=== PATIENT | male | born 1980 | race Caucasian/White ===

== ENCOUNTER 2017-01-20 18:56 | Emergency (ER) | payer SELFPAY ==
[~2017-01-20] VITALS: Ht 175.3 cm; Wt 79.4 kg
--- NOTE | 2017-01-20 19:11 | ED Integumentary General ---
General Chief Complaint: Skin/Wound Problems Stated Complaint: L THUMB POSSIBLE INFECTION Source: patient Exam Limitations: no limitations History of Present Illness Time seen by provider: 19:09 Initial Comments To ER with a painful left thumb for the past 4 days. No known injury. He's had a white spot to the distal radial side of the thumb and beneath the nail for several months. He believes that he injured it and then it grew back weird he states. No fevers or chills. No swelling. He does not have a regular doctor as he states he is very frightened of going to the doctor. Timing/Duration: week Severity: mild Associated Symptoms: denies symptoms Allergies and Home Medications Allergies Coded Allergies: No Known Drug Allergies (Unverified , 01/20/17) Constitutional: see HPI EENTM: see HPI Respiratory: no symptoms reported Cardiovascular: no symptoms reported Genitourinary: no symptoms reported Musculoskeletal: see HPI Skin: no symptoms reported Psychiatric/Neurological: No Symptoms Reported Endocrine: No Symptoms Reported Past Bkdtrmq-Ojbneq-Rqyngf Hx Patient Social History Alcohol Use: Denies Use Recreational Drug Use: No Smoking Status: Former Smoker Recent Foreign Travel: No Contact w/Someone Who Travel: No Recent Hopitalizations: No Physical Abuse: No Sexual Abuse: No Mistreated: No Psychosocial Suicide Risk Score: 0 Physical Exam Vital Signs Vital Sign - Last 12Hours 01/20/17 19:08 Temp 97.8 Pulse 106 Resp 14 B/P (MAP) 129/93 Pulse Ox 98 Capillary Refill : General Appearance: WD/WN, no apparent distress HEENT: PERRL/EOMI, normal ENT inspection Neck: non-tender, full range of motion Respiratory: no respiratory distress, no accessory muscle use Gastrointestinal: non tender, soft Extremities: normal range of motion, non-tender Neurologic/Psychiatric: alert, normal mood/affect, oriented x 3 Skin: normal color, warm/dry Skin Problem Location: other (there is a 3 mm area of whitish subungual discoloration to the ulnar side of the distal right thumb nail. The surrounding skin and paronychium and lunula are unaffected) Additional Procedures : Progress I did lift the nail from the nailbed to the distal lateral aspect of the thumbnail. This released a moderate amount of purulent material. Culture of this was collected and sent to lab. This was done after a digital block using 4 mL of 2 percent lidocaine without epinephrine. Progress/Results/Core Measures Results/Orders My Orders Orders - ISAIAS WOLF APRN Wound Culture (01/20/17 19:06) Lidocaine 2% Injection 20 Ml (Xylocaine (01/20/17 19:15) Vital Signs/I&O Vital Sign - Last 12Hours 01/20/17 19:08 Temp 97.8 Pulse 106 Resp 14 B/P (MAP) 129/93 Pulse Ox 98 Departure Impression Impression: Primary Impression: Subungual abscess Disposition: HOME, SELF-CARE Condition: Stable Departure-Patient Inst. Decision time for Depature: 19:32 Referrals: NO,LOCAL PHYSICIAN (PCP/Family) Primary Care Physician Patient Instructions: Skin Abscess Add. Discharge Instructions: You may soak the hand in warm water a couple of times a day. Keep the hand over this. Once the pain medication runs out use plain Tylenol and Motrin. Take your antibiotics as directed as this pus collection is because of infection. All discharge instructions reviewed with patient and/or family. Voiced understanding. Scripts Sulfamethoxazole/Trimethoprim (Bactrim Ds Tablet) 1 Each Tablet 1 EACH PO BID, #14 TAB Prov: ISAIAS WOLF APRN 01/20/17 ISAIAS WOLF APRN Jan 20, 2017 19:11
[2017-01-20] MEDS ORDERED: LIDOCAINE 2% 20 ML (XYLOCAINE) VIAL INJ ONE (19:15)
[2017-01-20] MEDS ORDERED: TRIM/SULFAMETH 160/800 (SEPTRA DS) TAB PO ONE (19:30)
[2017-01-20] MEDS ORDERED: RX-HYDROCODONE/APAP 5/325 MG #4 TAB PK PO PRN (19:30)
[2017-01-20] MEDS ORDERED: SULF1TAB35 PO (19:33)
[2017-01-20 19:43] VITALS: BP 129/93
== END 2017-01-20 19:43 | disposition home or self-care (01) ==
LOC: ER 19:01
DX: L02.512 Cutaneous abscess of left hand (principal); Z87.891 Personal history of nicotine dependence
CPT/HCPCS: 87070; 87077; 87186; 87205; 99283

== ENCOUNTER 2019-06-14 11:00 | Emergency (ER) | payer SELFPAY ==
[~2019-06-14 11:00] MED LIST: SULF1TAB35 PO
--- NOTE | 2019-06-14 11:38 | ED General ---
General Chief Complaint: Rect Problems Stated Complaint: RECTAL BLEEDING/PAIN History of Present Illness Date Seen by Provider: Jun 14, 2019 Time Seen by Provider: 11:05 Initial Comments 39-year-old male presents for rectal pain and bleeding that began yesterday. He noted bright red blood after BM, when wiping, and in his underwear. He denies any injuries, heavy lifting or straining or bowel movements. He's never had hemorrhoids or rectal bleeding in the past. He chronically gets skin irritation to his inner thighs and buttocks, he usually applies cornstarch after showering. He noted a bump by his rectum when showering yesterday, it was tender. He has not applied any creams or ointments to the area. Timing/Duration: 24 Hours Severity: Moderate Associated Systoms: Denies Symptoms Allergies and Home Medications Allergies Coded Allergies: morphine (Verified Allergy, Unknown, Rash, 06/14/19) Home Medications Sulfamethoxazole/Trimethoprim 1 Each Tablet, 1 EACH PO BID Prescribed by: ISAIAS WOLF on 01/20/171932 Patient Home Medication List Home Medication List Reviewed: Yes Review of Systems Review of Systems Constitutional: no symptoms reported, see HPI Gastrointestinal: see HPI, other (rectal bleeding and hemorrhoids) All Other Systems Reviewed Negative Unless Noted: Yes Past Htswnyr-Kdeeej-Utwpgi Hx Past Med/Social Hx: Reviewed Nursing Past Med/Soc Hx Patient Social History Alcohol Use: Occasionally Uses Recreational Drug Use: No Type Used: Smokeless Tobacco 2nd Hand Smoke Exposure: No Recent Foreign Travel: No Contact w/Someone Who Travel: No Recent Hopitalizations: No Past Medical History Surgeries: No Respiratory: No Cardiac: Yes High Cholesterol, Hypertension Neurological: No Genitourinary: No Gastrointestinal: No Musculoskeletal: No Endocrine: No HEENT: No Cancer: No Psychosocial: No Integumentary: No Blood Disorders: No Physical Exam Vital Signs Vital Signs - First Documented 06/14/19 11:10 Temp 36.9 Pulse 97 Resp 15 B/P (MAP) 136/119 (125) Pulse Ox 98 O2 Delivery Room Air Capillary Refill : Height, Weight, BMI Height: 5'9.00" Weight: 175lbs. oz. 79.946317yk; BMI Method:Stated General Appearance: No Apparent Distress, Anxious HEENT: PERRL/EOMI, TMs Normal, Normal ENT Inspection, Pharynx Normal Neck: Full Range of Motion, Normal Inspection, Non Tender, Supple Respiratory: Chest Non Tender, Lungs Clear, Normal Breath Sounds Cardiovascular: Regular Rate, Rhythm, No Murmur, Normal Peripheral Pulses Gastrointestinal: Normal Bowel Sounds, Non Tender, Soft Rectal: Normal Rectal Tone, Hemorrhoids (left external), Tenderness, Other (mild erythema and excoriation to the area rectal skin and inner thighs) Neurologic/Psychiatric: Alert, Oriented x3, No Motor/Sensory Deficits, Normal Mood/Affect Progress/Results/Core Measures Suspected Sepsis SIRS Temperature: Pulse: Respiratory Rate: Blood Pressure / Mean: Results/Orders Vital Signs/I&O 06/14/19 06/14/19 11:10 11:46 Temp 36.9 36.9 Pulse 97 92 Resp 15 15 B/P (MAP) 136/119 (125) 122/83 (125) Pulse Ox 98 98 O2 Delivery Room Air Room Air Capillary Refill : Departure Impression Primary Impression: Hemorrhoids Qualified Codes: K64.1 - Second degree hemorrhoids Disposition: HOME, SELF-CARE Condition: Improved Departure-Patient Inst. Decision time for Depature: 11:25 Referrals: [facility]/LASHAE EATON DO NO,LOCAL PHYSICIAN (PCP) Primary Care Physician Patient Instructions: Hemorrhoids (DC) Add. Discharge Instructions: Use Aquofor or other barrier cream for skin irritation. Use Preparation H or other Hemorrhoid creams, apply 4 times daily. Use Tucks pads, apply and leave in place for 1-2 hours. Avoid heavy lifting. Increase water intake, 16 oz every two hours, while awake. Sitz baths. Apply warm moist compresses to area for 5-10 min. Take an OTC stool softner. Establish care with a Primary Care Provider to discuss your blood pressure and cholesterol. If symptoms are not improving or worse, follow up at [facility] or call Dr. Wilde's office for an appt. Return to the emergency department for new, urgent health care needs. All discharge instructions reviewed with patient and/or family. Voiced understanding. Work/School Note: Work Release Form Date Seen in the Emergency Department: Jun 14, 2019 Return to Work: Jun 16, 2019 Restrictions: No Restrictions MANNJCAKELYN Jun 14, 2019 11:38
[2019-06-14 11:46] VITALS: BP 122/83
--- OUTSIDE RECORDS SUMMARY | 2019-06-15 00:29 | XMS REPORT ---
Author Author Carlos A WATSON Organization [facility] Address [address] [place] [address] Care Team Providers Care Physiologist Name Role Phone LOKI WATSON Unavailable PROBLEMS Type Condition ICD9-CM Code [id number] Code Onset Dates Condition S tatus SNOMED Code Problem Hyperlipidemia, unspecified hyperlipidemia type E7 8.5 Active [id number] ALLERGIES No Information ENCOUNTERS Encounter Location Date Diagnosis [facility] [address] [facility] [id number] [address] [place] [phone] Dec, [facility] [address] [place] [id number] [address] [place] [phone] Nov, [facility] [address] [facility] [id number] [address] [place] [phone] Nov, [facility] [address] [facility] [id number] [address] [place] [phone] Nov, Hyperlipidemia, unspecified hyperlipidemia type E78.5 [facility] [address] [facility] [id number] [address] [place] [phone] Nov, Vision changes H53.9 and Enc ounter to establish care with new doctor Z76.89 IMMUNIZATIONS No Known Immunizations SOCIAL HISTORY Never Assessed REASON FOR VISIT lab results PLAN OF CARE VITAL SIGNS MEDICATIONS Medication Instructions Dosage Frequency Start Date End Date Duration S tatus Atorvastatin Calcium 20 mg Orally Once a day 1 tablet 24h p2017 30 day(s) Active RESULTS No Results PROCEDURES No Known procedures INSTRUCTIONS MEDICATIONS ADMINISTERED No Known Medications MEDICAL (GENERAL) HISTORY Type Description Date Surgical History head injury 1986
--- OUTSIDE RECORDS SUMMARY | 2019-06-15 00:29 | XMS REPORT ---
Author Author Carlos A WATSON Organization [facility] Address [address] [place] [address] Care Team Providers Care Link Fabric Machine Operator Name Role Phone LOKI WATSON Unavailable PROBLEMS Type Condition ICD9-CM Code [id number] Code Onset Dates Condition S tatus SNOMED Code Problem Hyperlipidemia, unspecified hyperlipidemia type E7 8.5 Active [id number] ALLERGIES No Information ENCOUNTERS Encounter Location Date Diagnosis [facility] [address] [facility] [id number] [address] [place] [phone] Dec, [facility] [address] [place] [id number] [address] [place] [phone] Nov, [facility] [address] [facility] [id number] [address] [place] [phone] Nov, [facility] [address] [facility] [id number] [address] [place] [phone] Nov, Hyperlipidemia, unspecified hyperlipidemia type E78.5 [facility] [address] [facility] [id number] [address] [place] [phone] 05 Nov, 2017 Vision changes H53.9 and Enc ounter to establish care with new doctor Z76.89 IMMUNIZATIONS No Known Immunizations SOCIAL HISTORY Never Assessed REASON FOR VISIT labs and new orders PLAN OF CARE VITAL SIGNS MEDICATIONS Medication Instructions Dosage Frequency Start Date End Date Duration S tatus Atorvastatin Calcium 20 mg Orally Once a day 1 tablet 24h 2017 30 day(s) Active RESULTS No Results PROCEDURES No Known procedures INSTRUCTIONS MEDICATIONS ADMINISTERED No Known Medications MEDICAL (GENERAL) HISTORY Type Description Date Surgical History head injury 1985
--- OUTSIDE RECORDS SUMMARY | 2019-06-15 00:29 | XMS REPORT ---
Author Author Carlos A WATSON Organization [facility] Address [address] [place] [address] Care Team Providers Care Airplane Charter Clerk Name Role Phone LOKI WATSON Unavailable PROBLEMS Type Condition ICD9-CM Code [id number] Code Onset Dates Condition S tatus SNOMED Code Problem Hyperlipidemia, unspecified hyperlipidemia type E7 8.5 Active [id number] ALLERGIES Substance Reaction Event Type Date Status Morphine Sulfate itching Drug Allergy Nov, Active ENCOUNTERS Encounter Location Date Diagnosis [facility] [address] [place] [id number] [address] [place] [phone] Dec, [facility] [address] [phone] Nov, [facility] [address] [place] [id number] [address] [place] [phone] Nov, [facility] [address] [place] [id number] [address] [place] [phone] Nov, Hyperlipidemia, unspecified hyperlipidemia type E78.5 [facility] [address] [place] [id number] [address] [place] [phone] Nov, Vision changes H53.9 and Enc ounter to establish care with new doctor Z76.89 IMMUNIZATIONS No Known Immunizations SOCIAL HISTORY Never Assessed REASON FOR VISIT Headache-ROLF padgett PLAN OF CARE Activity Details Follow Up 3 months or as indicated by lab Reason: VITAL SIGNS Height 5 ft 10 in in 2017-12-04 Weight 218.8 lbs 2017-12-04 Temperature 98.1 degrees Fahrenheit 2017-12-04 Heart Rate 96 bpm 2017-12-04 Respiratory Rate 18 2017-12-04 BMI 31.39 kg/m2 2017-12-04 Blood pressure systolic 130 mmHg 2017-12-04 Blood pressure diastolic 84 mmHg 2017-12-04 MEDICATIONS Unknown Medications RESULTS No Results PROCEDURES Procedure Date Ordered Result Body Site COMPLETE CBC W/AUTO DIFF WBC Dec 04, 2017 VENIPUNCT, ROUTINE* Dec 04, 2017 LIPID PANEL Dec 04, 2017 COMPREHEN METABOLIC PANEL Dec 04, 2017 ASSAY OF FREE THYROXINE Dec 04, 2017 ASSAY THYROID STIM HORMONE Dec 04, 2017 INSTRUCTIONS MEDICATIONS ADMINISTERED No Known Medications MEDICAL (GENERAL) HISTORY Type Description Date Surgical History head injury 1986
--- OUTSIDE RECORDS SUMMARY | 2019-06-15 00:29 | XMS REPORT ---
Author Author Carlos A WATSON Organization [facility] Address [address] [place] [address] Care Team Providers Care Pulp Machine Operator Name Role Phone LOKI WATSON Unavailable PROBLEMS Type Condition ICD9-CM Code NIO38-GV Code Onset Dates Condition S tatus SNOMED Code Problem Hyperlipidemia, unspecified hyperlipidemia type E7 8.5 Active [id number] ALLERGIES No Information ENCOUNTERS Encounter Location Date Diagnosis [facility] [address] [facility] [id number] [address] [place] [phone] Dec, [facility] [address] [place] [id number] [address] [place] [phone] Nov, [facility] [address] [facility] [id number] [address] [place] [phone] Nov, [facility] [address] [facility] [id number] [address] [place] [phone] Nov, Hyperlipidemia, unspecified hyperlipidemia type E78.5 [facility] [address] [facility] [id number] [address] [place] [phone] 05 Nov, 2017 Vision changes H53.9 and Enc ounter to establish care with new doctor Z76.89 IMMUNIZATIONS No Known Immunizations SOCIAL HISTORY Never Assessed REASON FOR VISIT Lab results PLAN OF CARE VITAL SIGNS MEDICATIONS Unknown Medications RESULTS No Results PROCEDURES No Known procedures INSTRUCTIONS MEDICATIONS ADMINISTERED No Known Medications MEDICAL (GENERAL) HISTORY Type Description Date Surgical History head injury 1986
== END 2019-06-14 11:46 | disposition home or self-care (01) ==
LOC: EDUNIT# 11:00 → ER 11:02
DX: K64.9 Unspecified hemorrhoids (principal); Z88.5 Allergy status to narcotic agent
CPT/HCPCS: 99282

== ENCOUNTER 2020-10-06 11:13 | Emergency (ER) | payer BC ==
[~2020-10-06] VITALS: Ht 175 cm; Wt 109.0 kg
--- NOTE | 2020-10-06 11:59 | ED EENT ---
History of Present Illness General Chief Complaint: Skin/Wound Problems Stated Complaint: L EYE SWOLLEN Source: patient Exam Limitations: no limitations History of Present Illness Date Seen by Provider: Oct 06, 2020 Time Seen by Provider: 11:56 Initial Comments Left eye swelling and pain x3 days. No known cause. Saw PSYCHIATRIC yesterday and was given bactrim but feels he is worse. No vision troubles, no fevers. Timing/Duration: abrupt Severity: moderate Prearrival Treatment: no prearrival treatment Associated Symptoms: denies symptoms Allergies and Home Medications Allergies Coded Allergies: morphine (Verified Allergy, Unknown, Rash, 06/14/19) Home Medications Amoxicillin/Potassium Clav 1 Each Tablet, 1 EACH PO BID Prescribed by: ISAIAS WOLF on 10/06/20 1316 Hydrocodone/Acetaminophen 1 Each Tablet, 1 TAB PO Q4H PRN for PAIN-MODERATE (5- 7) Prescribed by: ISAIAS WOLF on 10/06/20 1317 Sulfamethoxazole/Trimethoprim 1 Each Tablet, 1 EACH PO BID Prescribed by: ISAIAS WOLF on 01/20/17 193 Patient Home Medication List Home Medication List Reviewed: Yes Review of Systems Review of Systems Constitutional: see HPI Eyes: No Symptoms Reported Ears: No Symptoms Reported Nose: no symptoms reported Mouth: no symptoms reported Throat: no symptoms reported Respiratory: no symptoms reported Cardiovascular: no symptoms reported Musculoskeletal: no symptoms reported Skin: see HPI Neurological: No Symptoms Reported Hematologic/Lymphatic: No Symptoms Reported Immunological/Allergic: no symptoms reported Past Ihnheis-Ltojfv-Gvjskd Hx Past Medical History Surgeries: No Respiratory: No Cardiac: Yes High Cholesterol, Hypertension Neurological: No Genitourinary: No Gastrointestinal: No Musculoskeletal: No Endocrine: No HEENT: No Cancer: No Psychosocial: No Integumentary: No Blood Disorders: No Physical Exam Vital Signs Vital Signs - First Documented 10/06/20 11:32 Temp 36.0 Pulse 100 Resp 18 B/P (MAP) 114/78 (90) Pulse Ox 96 Height, Weight, BMI Height: 5'9.00" Weight: 175lbs. oz. 79.532681jm; BMI Method:Stated General Appearance: WD/WN, no apparent distress Eyes: left eye other (left infraorbital swelling and erythema. the is a pustule witout drainage but with induration to the center of this erythemalateral to the nose but inferior to the lacrimal duct. The globe itself is witout scleral injection. EOMI. ); bilateral eye normal inspection, bilateral eye PERRL, bilateral eye EOMI Ears: bilateral ear auricle normal, bilateral ear canal normal, bilateral ear TM normal Nose: active bleeding Mouth/Throat: maxillary swelling Neck: non-tender, full range of motion Respiratory: no respiratory distress, no accessory muscle use Gastrointestinal: normal bowel sounds, non tender Neurologic/Psychiatric: alert, normal mood/affect, oriented x 3 Skin: normal color, warm/dry Progress/Results/Core Measures Results/Orders Lab Results Laboratory Tests Test 10/06/20 11:49 Range/Units White Blood Count 14.4 H 4.3-11.0 10^3/uL Red Blood Count 5.76 H 4.30-5.52 10^6/uL Hemoglobin 17.1 13.3-17.7 g/dL Hematocrit 50 40-54 % Mean Corpuscular Volume 87 80-99 fL Mean Corpuscular Hemoglobin 30 25-34 pg Mean Corpuscular Hemoglobin Concent 34 32-36 g/dL Red Cell Distribution Width 12.3 10.0-14.5 % Platelet Count 320 130-400 10^3/uL Mean Platelet Volume 9.2 9.0-12.2 fL Immature Granulocyte % (Auto) 0 % Neutrophils (%) (Auto) 68 42-75 % Lymphocytes (%) (Auto) 24 12-44 % Monocytes (%) (Auto) 6 0-12 % Eosinophils (%) (Auto) 2 0-10 % Basophils (%) (Auto) 0 0-10 % Neutrophils # (Auto) 9.7 H 1.8-7.8 10^3/uL Lymphocytes # (Auto) 3.5 1.0-4.0 10^3/uL Monocytes # (Auto) 0.8 0.0-1.0 10^3/uL Eosinophils # (Auto) 0.3 0.0-0.3 10^3/uL Basophils # (Auto) 0.1 0.0-0.1 10^3/uL Immature Granulocyte # (Auto) 0.1 0.0-0.1 10^3/uL Neutrophils % (Manual) 75 % Lymphocytes % (Manual) 20 % Monocytes % (Manual) 4 % Eosinophils % (Manual) 1 % Basophils % (Manual) 0 % Band Neutrophils 0 % Blood Morphology Comment NORMAL Sodium Level 138 135-145 MMOL/L Potassium Level 3.9 3.6-5.0 MMOL/L Chloride Level 104 98-107 MMOL/L Carbon Dioxide Level 19 L 21-32 MMOL/L Anion Gap 15 H 5-14 MMOL/L Blood Urea Nitrogen 13 7-18 MG/DL Creatinine 0.99 0.60-1.30 MG/DL Estimat Glomerular Filtration Rate > 60 BUN/Creatinine Ratio 13 Glucose Level 109 H 70-105 MG/DL Calcium Level 9.6 8.5-10.1 MG/DL C-Reactive Protein High Sensitivity 1.79 H 0.00-0.50 MG/DL My Orders Orders - ISAIAS WOLF APRN Cbc With Automated Diff (10/06/20 11:51) Hs C Reactive Protein (10/06/20 11:51) Basic Metabolic Panel (10/06/20 11:51) Ed Iv/Invasive Line Start (10/06/20 11:51) Ns Iv 1000 Ml (Sodium Chloride 0.9%) (10/06/20 12:00) Ketorolac Injection (Toradol Injection) (10/06/20 12:00) Clindamycin 900 Mg/50 Ml Ivpb (Cleocin P (10/06/20 12:00) Manual Differential (10/06/20 11:49) Ct Maxillofacial W (10/06/20 12:48) Iohexol Injection (Omnipaque 350 Mg/Ml 1 (10/06/20 13:15) Received Contrast (Hold Metformin- Contr (10/06/20 13:15) Sodium Chloride Flush (Catheter Flush Sy (10/06/20 13:15) Ns (Ivpb) (Sodium Chloride 0.9% Ivpb Bag (10/06/20 13:15) Medications Given in ED Current Medications Medications Dose Ordered Sig/Cassidy Route Start Time Stop Time Status Last Admin Dose Admin Clindamycin Phosphate/Dextrose 50 ml @ 100 mls/hr ONCE ONCE IV 10/06/20 12:00 10/06/20 12:29 DC 10/06/20 12:10 100 MLS/HR Iohexol 75 ml ONCE ONCE IV 10/06/20 13:15 10/06/20 13:16 DC 10/06/20 13:39 75 ML Ketorolac Tromethamine 15 mg ONCE ONCE IVP 10/06/20 12:00 10/06/20 12:01 DC 10/06/20 12:10 15 MG Sodium Chloride 10 ml NEEDED PRN IV 10/06/20 13:15 10/06/20 13:40 10 ML Sodium Chloride 100 ml ONCE ONCE IV 10/06/20 13:15 10/06/20 13:16 DC 10/06/20 13:40 80 ML Vital Signs/I&O 10/06/20 11:32 Temp 36.0 Pulse 100 Resp 18 B/P (MAP) 114/78 (90) Pulse Ox 96 Diagnostic Imaging Diagonstic Imaging: CT Comments NAME: GARCIA TAMAYO MED REC#: [id number] PT STATUS: REG ER : 1980 PHYSICIAN: ISAIAS WOLF APRN ADMIT DATE: 10/06/20/ER Draft Date of Exam:10/06/20 CT MAXILLOFACIAL W PROCEDURE: CT maxillofacial with contrast. TECHNIQUE: After intravenous administration of contrast, axial images were obtained through the face and reformatted into coronal and sagittal planes. Auto Exposure Controls were utilized during the CT exam to meet ALARA standards for radiation dose reduction. INDICATION: Left eye swelling and preseptal swelling. COMPARISON: No prior studies are available for comparison. FINDINGS: There is significant edema in the preseptal portion of the left orbit. Both globes appear to be intact. No retro-orbital fluid collection is seen. There is no fluid collection identified. There is some swelling in the premaxillary tissues on the left as well. Submandibular and parotid glands are unremarkable. The nasopharynx and oropharynx are unremarkable. Epiglottis is unremarkable. Evaluation of the paranasal sinuses demonstrates some opacification of right-sided ethmoid air cells. Frontal sinuses are clear. Maxillary sinuses are clear. The sphenoid is clear. IMPRESSION: Left facial and left periorbital cellulitis. No definite findings to suggest orbital cellulitis or retro-orbital fluid collection are seen. Dictated on workstation # [id number] Dict: 10/06/20 1403 Trans: 10/06/20 1407 [id number] Interpreted by: BRIA KATZ MD Electronically signed by: Departure Impression Primary Impression: Preseptal cellulitis of left eye Disposition: HOME, SELF-CARE Condition: Stable Departure-Patient Inst. Decision time for Depature: 13:16 Referrals: [facility]/K (PCP/Family) Primary Care Physician Patient Instructions: Preseptal Cellulitis ED Add. Discharge Instructions: Continue the antibiotic prescribed by [facility] and add to with the antibiotic prescribed by ut. Warm compresses to the area. Return to ER for any worsening. All discharge instructions reviewed with patient and/or family. Voiced understanding. Scripts Hydrocodone/Acetaminophen (Hydrocodone-Acetamin 5-325 mg) 1 Each Tablet 1 TAB PO Q4H PRN for PAIN-MODERATE (5-7), #10 TAB Prov: ISAIAS WOLF APRN 10/06/20 Amoxicillin/Potassium Clav (Augmentin 875-125 Tablet) 1 Each Tablet 1 EACH PO BID, #14 TAB 0 Refills Prov: ISAIAS WOLF APRN 10/06/20 ISAIAS WOLF APRN Oct 06, 2020 11:59
[2020-10-06 12:00] LABS: BASOPHILS # (AUTO) 0.1 10^3/uL (0.0-0.1); BASOPHILS % (AUTO) 0 % (0-10); EOSINOPHILS # (AUTO) 0.3 10^3/uL (0.0-0.3); EOSINOPHILS % (AUTO) 2 % (0-10); HEMATOCRIT 50 % (40-54); HEMOGLOBIN 17.1 g/dL (13.3-17.7); LYMPHOCYTES # (AUTO) 3.5 10^3/uL (1.0-4.0); LYMPHOCYTES % (AUTO) 24 % (12-44); MEAN CORPUSCULAR HEMOGLOBIN 30 pg (25-34); MEAN CORPUSCULAR HGB CONC 34 g/dL (32-36); MEAN CORPUSCULAR VOLUME 87 fL (80-99); MEAN PLATELET VOLUME 9.2 fL (9.0-12.2); MONOCYTES # (AUTO) 0.8 10^3/uL (0.0-1.0); MONOCYTES % (AUTO) 6 % (0-12); NEUTROPHILS # (AUTO) 9.7 10^3/uL (1.8-7.8); NEUTROPHILS % (AUTO) 68 % (42-75); PLATELET COUNT 320 10^3/uL (130-400); WHITE BLOOD COUNT 14.4 10^3/uL (4.3-11.0)
[2020-10-06] MEDS ORDERED: NS IV 1000 ML 1,000 ML IV SCH (12:00)
[2020-10-06] MEDS ORDERED: CLINDAMYCIN 900 MG/50 ML IVPB 50 ML IV ONE (12:00)
[2020-10-06] MEDS ORDERED: KETOROLAC 30 MG/ML VIAL IVP ONE (12:00)
[2020-10-06 12:11] LABS: CHLORIDE 104 MMOL/L (98-107); POTASSIUM 3.9 MMOL/L (3.6-5.0); SODIUM 138 MMOL/L (135-145)
[2020-10-06 12:13] LABS: CALCIUM 9.6 MG/DL (8.5-10.1); GLUCOSE 109 MG/DL (70-105)
[2020-10-06 12:15] LABS: CARBON DIOXIDE 19 MMOL/L (21-32)
[2020-10-06 12:17] LABS: CREATININE SERUM 0.99 MG/DL (0.60-1.30); GFR ESTIMATED > 60
[2020-10-06 12:18] LABS: BUN/CREATININE RATIO 13
[2020-10-06 12:29] LABS: BAND NEUTROPHILS 0 %; BASOPHILS % (MANUAL) 0 %; EOSINOPHILS % (MANUAL) 1 %; LYMPHOCYTES % (MANUAL) 20 %; MONOCYTES % (MANUAL) 4 %; NEUTROPHILS % (MANUAL) 75 %; RBC MORPH NORMAL
[2020-10-06] MEDS ORDERED: HOLD METFORMIN - RECEIVED CONTRAST 20 ML VIAL IV SCH (13:15)
[2020-10-06] MEDS ORDERED: CATHETER FLUSH 10 ML SYR IV PRN (13:15)
[2020-10-06] MEDS ORDERED: IOHEXOL 350 MG/ML 100 ML (OMNIPAQUE 350) VIAL IV ONE (13:15)
[2020-10-06] MEDS ORDERED: NS 100 ML (IVPB) BAG IV ONE (13:15)
[2020-10-06] MEDS ORDERED: AMOX-358 PO (13:16)
[2020-10-06] MEDS ORDERED: ACHD5005 PO (13:17)
--- NOTE | 2020-10-06 14:08 | Diagnostic Imaging Report ---
PROCEDURE: CT maxillofacial with contrast. TECHNIQUE: After intravenous administration of contrast, axial images were obtained through the face and reformatted into coronal and sagittal planes. Auto Exposure Controls were utilized during the CT exam to meet ALARA standards for radiation dose reduction. INDICATION: Left eye swelling and preseptal swelling. COMPARISON: No prior studies are available for comparison. FINDINGS: There is significant edema in the preseptal portion of the left orbit. Both globes appear to be intact. No retro-orbital fluid collection is seen. There is no fluid collection identified. There is some swelling in the premaxillary tissues on the left as well. Submandibular and parotid glands are unremarkable. The nasopharynx and oropharynx are unremarkable. Epiglottis is unremarkable. Evaluation of the paranasal sinuses demonstrates some opacification of right-sided ethmoid air cells. Frontal sinuses are clear. Maxillary sinuses are clear. The sphenoid is clear. IMPRESSION: Left facial and left periorbital cellulitis. No definite findings to suggest orbital cellulitis or retro-orbital fluid collection are seen. Dictated by: Dictated on workstation # [id number]
[2020-10-06 14:19] VITALS: BP 114/78
== END 2020-10-06 14:19 | disposition home or self-care (01) ==
LOC: EDUNIT# 11:13 → ER 11:16
DX: L03.213 Periorbital cellulitis (principal); I10 Essential (primary) hypertension
CPT/HCPCS: 36415; 70487; 80048; 85007; 85027; 86141